=== PATIENT | male | born 1990 | race Caucasian/White ===

== ENCOUNTER 2019-09-30 10:31 | Outpatient (CLI) | payer OTHER, SELFPAY ==
[2019-10-07 00:44] LABS: Result Summary NEGATIVE; Specimen WB Whole Blood
[2019-10-09 12:16] LABS: Specimen WB Whole Blood
== END 2019-09-30 10:51 ==
PROVIDERS: Visit Provider Advanced Practice Midwife
DX: Z13.228 Encounter for screening for other metabolic disorders (principal); Z13.79 Encounter for other screening for genetic and chromosomal anomalies
CPT/HCPCS: 81329; 81220

== ENCOUNTER 2020-04-07 14:07 | Emergency (ER) | payer OTHER, SELFPAY ==
[2020-04-07 14:18] VITALS: BP 126/79; PULSE 91; RESP 18; TEMP 36.7; O2SAT 97
--- NOTE | 2020-04-07 14:25 | W.ED.GENAD ---
Discharge Plan Disposition Patient Disposition: HOME Condition: Stable Discharge Details Clinical Impression: Acute urinary retention, Constipation Primary Care Provider: None,None ED Provider: Yee Barker Home Meds and New Rx's Prescriptions: New tamsulosin [Flomax] 0.4 mg capsule 0.4 mg PO DAILY Qty: 10 RF: 0 Continued ibuprofen 800 mg tablet 800 mg PO Q6H PRNRF: 0 saw palmetto 80 mg Capsule RF: 0 Uro-Zinc RF: 0 Discharge Instructions Instructions: Constipation (ED), Urinary Retention in Men (ED) Additional Instructions: Take the Flomax daily as directed. Take MiraLAX [id number] as directed. Follow-up with urology Dr. Franklin next week for reevaluation. Follow-up with your scheduled appoint with Dr. Franklin on April 29 if indicated. Return immediately to the emergency department if you develop any worsening or new concerning symptoms. Referrals: Jhon Franklin MD [ [facility] STAFF PHYSICIAN] - Discharge Data Discharge Physician: Yee Barker Medical Decision Making 29-year-old male with a history of previous urinary retention in 2011 presents with urinary retention, hesitancy, urgency and dribbling over the past few weeks, worse over the past 6 days. No cauda equina symptoms. Patient able to give a urine sample here and then bladder scanned after urinated and noted to have ~300cc urine post void. Patient appears nontoxic and in no acute distress. Vitals within normal limits. Normal exam. No CVA tenderness. Differential diagnosis includes kidney stone, infection, mass, other source of urinary obstruction. Will place an IV, bolus IV fluids, screening labs, urinalysis and CT abdomen and pelvis. Labs reviewed and unremarkable. No evidence of infection. Normal white blood cell count. Normal renal function. CT abdomen/pelvis notes: Impression: Horseshoe kidney. Distended urinary bladder with mild wall thickening. Mild dilatation of the renal pelves. No evidence of mass or obstructing stone. Large quantity of stool in the rectum. Case discussed with Dr. Franklin who relates that he has seen this before in cases of constipation and stool retention. He recommends a bowel regimen with MiraLAX and also Flomax for his bladder sphincter spasm and relates that this is likely muscular related to his constipation. Patient given 1 dose of Flomax here. Patient placed on urology follow-up list. Medical Records Medical records reviewed: Yes I reviewed the patient's medical records. Imaging Data Radiologic Study: Radiologist's impression: CT ABDOMEN PELVIS W CLINICAL HISTORY: urinary retention, r/o obstruction, mass. TECHNIQUE: Imaging Protocol: Axial computed tomography images with coronal and sagittal reformatted images were created and reviewed CONTRAST MATERIAL: Intravenous: Omnipaque 350 Contrast volume:100 ml Oral: / no COMPARISON: No exams were available for comparison FINDINGS: ABDOMEN: Lung Bases: Normal where visualized. Liver: Normal density. No measurable mass. Gallbladder and biliary tract: No radiodense calculus or dilation. Pancreas: Normal density, no abnormal calcifications or inflammatory process. Spleen: Normal. Kidneys: Horseshoe kidney. No radiodense stones or obstructive uropathy. No masses seen. The renal pelves are mildly prominent which could be secondary to a distended urinary bladder. Adrenal glands: No masses seen. Abdominal Aorta: Abdominal portion non-dilated. PELVIS: Bladder: Distended. Mild diffuse bladder wall thickening. The prostate is not enlarged. No mass or calculi are identified. Bowel: No obstruction or bowel wall thickening. Normal appendix. Increased stool, reticular early in the rectum which appears distended. Peritoneal cavity: No ascites, collection or mesenteric inflammatory response. No free air. Bones: Within normal limits. Reproductive organs: Within normal limits. Lymph nodes: Unremarkable. Impression: Horseshoe kidney. Distended urinary bladder with mild wall thickening. Mild dilatation of the renal pelves. No evidence of mass or obstructing stone.. Large quantity of stool in the rectum. Lab Data Lab results reviewed: Yes I reviewed the patient's lab results. Labs: Laboratory Tests Range/Units 04/07/20 04/07/20 04/07/20 14:33 14:45 14:45 WBC (4.4-10.8) 10^3/uL 5.20 RBC (4.36-5.78) 10^6/uL 5.69 Hgb (13.5-17.5) g/dL 16.9 Hct (40.0-50.0) % 50.1 H MCV (80-95) fL 88.0 MCH (27.0-33.0) pg 29.7 MCHC (32.0-36.0) % 33.7 RDW (11.8-14.1) % 10.8 L Plt Count (130-400) 10^3/uL 256 MPV (8.0-11.0) fL 9.3 Immature Gran % 0.2 Neutrophils % 64.6 Lymphocytes % 26.3 Monocytes % 8.3 Eosinophils % 0.4 Basophils % 0.2 Nucleated RBC % % 0 Absolute Neutrophils (1.2-6.7) 10^3/uL 3.36 Absolute Lymphocytes (1.2-3.4) 10^3/uL 1.37 Absolute Monocytes (0.1-0.8) 10^3/uL 0.43 Absolute Eosinophils (0.0-0.7) 10^3/uL 0.02 Absolute Basophils (0.0-0.2) 10^3/uL 0.01 Sodium (136-145) mmol/L 137 Potassium (3.5-5.1) mmol/L 3.9 Chloride (98-107) mmol/L 101 Carbon Dioxide (21.0-32.0) mmol/L 26.2 Anion Gap (3-11) mmol/L 9.8 BUN (7-18) mg/dL 15 Creatinine (0.70-1.30) mg/dL 1.00 Estimated GFR/1.73 m2 (mL/min/1.73m2) >= 60.00 Glucose (74-106) mg/dL 98 Calcium (8.5-10.1) mg/dL 9.4 Total Bilirubin (0.2-1.0) mg/dL 0.7 AST (15-37) U/L 17 ALT (16-63) U/L 26 Alkaline Phosphatase (46-116) U/L 75 Total Protein (6.4-8.2) g/dL 8.8 H Albumin (3.4-5.0) g/dL 4.7 Urine Color (Yellow) Yellow Urine Clarity (Clear) Clear Urine pH (5-8) 6.5 Ur Specific [place] (1.005-1.025) 1.025 Urine Protein (Negative) mg/dL Negative Urine Ketones (Negative) mg/dL Negative Urine Blood (Negative) Negative Urine Nitrite (Negative) Negative Urine Bilirubin (Negative) Negative Urine Urobilinogen (Up TO 0.2) EU/dL 0.2 Ur Leukocyte Esterase (Negative) Negative Urine RBC (0-2) HPF Negative Urine WBC (0-5) HPF 0-2 Ur Epithelial Cells (Negative) HPF Negative Urine Crystals (Negative) HPF Negative Urine Bacteria (Negative) HPF Negative Urine Casts (Negative) LPF Negative Urine Mucus (Negative) Negative Ur Culture Indicated? No Urine Glucose (Negative) mg/dL Negative HPI General Mode of arrival: ambulatory. Date/Time Provider Initiated Documentation: 04/07/20 14:12. Limitations to Documentation: no limitations. Information obtained by: patient. HPI Narrative: Patient is a 29-year-old male with a previous history of urinary retention in 2011 presents for difficulty with urinating for the past few weeks, worse over the past 6 days. Patient states he has had urinary hesitancy, urgency, dribbling and blood-tinged urine. He states he is sexually active with his and denies any known exposure to STDs. He denies any pain with intercourse. Patient states in 2012 he had diminishing ability to urinate with eventual complete urinary retention for which he was seen in ED and by urology and had a Fair catheter which was removed by urology after 1 week. He states he does not remember if he had a cystoscopy. Patient denies fever, nausea, vomiting, abdominal pain, testicular complaints. He states he has some issues with constipation but generally has a bowel movement every other day which is formed and brown. Related Data Home Medications Medication Instructions Recorded Confirmed Uro-Zinc 04/07/20 ibuprofen 800 mg tablet 800 mg PO Q6H PRN 04/07/20 04/07/20 saw palmetto mg 04/07/20 tamsulosin [Flomax] 0.4 mg PO DAILY #10 cap 04/07/20 Previous Rx's Medication Instructions Recorded tamsulosin [Flomax] 0.4 mg PO DAILY #10 cap 04/07/20 Allergies Allergy/AdvReac Type Severity Reaction Status Date / Time No Known Allergies Allergy Unverified 04/07/20 14:34 General Stated Complaint: Urinary MADONNA: 3 Review of Systems All systems reviewed & are unremarkable except as noted in HPI and below Constitutional Constitutional: Reports as per HPI, Denies chills and Denies fever(s) Eyes Eyes: Denies blurry vision ENT Ears, Nose, Mouth, and Throat: Denies dizziness, Denies sore throat and Denies throat swelling Cardiovascular Cardiovascular: Denies chest pain and Denies dyspnea Respiratory Respiratory: Denies cough and Denies dyspnea Gastrointestinal Gastrointestinal: Denies abdominal pain, Denies diarrhea and Denies vomiting Genitourinary Genitourinary: Denies hematuria, Reports oliguria, Reports difficulty urinating, Denies dysuria, Reports urinary hesitancy and Reports urinary urgency Musculoskeletal Musculoskeletal: Denies back pain and Denies numbness Integumentary/Breasts Skin/Breast: Denies lesions and Denies rash Neurologic Neurologic: Denies dizziness, Denies localized weakness and Denies numbness Allergic/Immunologic Allergic/Immunologic: Denies throat swelling PFSH Medical History (Updated 04/07/20 @ 16:24 by Yee Barker DO) Urinary retention Surgical History (Updated 04/07/20 @ 16:38 by Yee Barker DO) No significant past surgical history Social History Smoking/Tobacco Use Status: Never Smoking risk assessment performed?: Yes Alcohol Intake: current Alcohol Intake frequency: a few times a month Substance use type: does not use Do you feel safe at home: Yes Do you feel safe in your relationship?: Yes Exam Const General: cooperative, healthy appearing and no acute distress HENMT Head: normal to inspection Face and sinus: normal facial exam Eyes General: appearance normal, both eyes and all related structures EOM: EOM intact bilaterally Neck Neck: normal visual inspection and No submandibular swelling Lymphatic: no lymphadenopathy noted Chest Chest: normal inspection of the chest and no tenderness Resp Effort & Inspection: normal respiratory effort and able to speak in complete sentences Auscultation: clear to auscultation bilaterally Cardio Rate: regular rate Rhythm: regular rhythm GI Inspection: normal to inspection Palpation: soft, not firm, not rigid and nontender Auscultation: normal bowel sounds Male General Exam: Yes normal external exam Scrotum: scrotum normal Testes: normal Skin General skin exam: no rashes or lesions noted Neuro General: patient alert, patient awake and patient oriented x3 Cognition: normal cognition Speech: speech normal Motor: muscle tone normal throughout Sensory Exam: no sensory deficits noted Extrem General: normal to inspection, full ROM, capillary refill normal, no calf tenderness bilaterally and no edema Psych Appearance: grossly normal Mental Status: mental status grossly normal Speech and Movement: speech and movement normal Affect: normal affect
[2020-04-07 14:44] LABS: Bilirubin Negative (Negative); Blood Negative (Negative); Clarity Clear (Clear); Glucose Negative (Negative); Ketones Negative (Negative); Leukocyte Esterase Negative (Negative); Specific Gravity 1.025 (1.005-1.025); Urobilinogen 0.2 EU/dL (Up TO 0.2); pH 6.5 (5-8)
--- NOTE | 2020-04-07 14:45 | DI.CT_ITS ---
EXAM: CT ABDOMEN PELVIS W CLINICAL HISTORY: urinary retention, r/o obstruction, mass. TECHNIQUE: Imaging Protocol: Axial computed tomography images with coronal and sagittal reformatted images were created and reviewed CONTRAST MATERIAL: Intravenous: Omnipaque 350 Contrast volume:100 ml Oral: / no COMPARISON: No exams were available for comparison FINDINGS: ABDOMEN: Lung Bases: Normal where visualized. Liver: Normal density. No measurable mass. Gallbladder and biliary tract: No radiodense calculus or dilation. Pancreas: Normal density, no abnormal calcifications or inflammatory process. Spleen: Normal. Kidneys: Horseshoe kidney. No radiodense stones or obstructive uropathy. No masses seen. The renal p elves are mildly prominent which could be secondary to a distended urinary bladder. Adrenal glands: No masses seen. Abdominal Aorta: Abdominal portion non-dilated. PELVIS: Bladder: Distended. Mild diffuse bladder wall thickening. The prostate is not enlarged. No mass or calculi are identified. Bowel: No obstruction or bowel wall thickening. Normal appendix. Increased stool, reticular early in the rectum which appears distended. Peritoneal cavity: No ascites, collection or mesenteric inflammatory response. No free air. Bones: Within normal limits. Reproductive organs: Within normal limits. Lymph nodes: Unremarkable. Impression: Horseshoe kidney. Distended urinary bladder with mild wall thickening. Mild dilatation of the guy l pelves. No evidence of mass or obstructing stone.. Large quantity of stool in the rectum. RADIATION DOSE DELIVERED: 546.43mGy.cm Total DLP DATA REPOSITORY: All CT scans at this facility are submitted to the National Radiology Data Registry (NRDR) Dose Index Registry (DIR) with the [employer] ([employer]). RADIATION OPTIMIZATION: All CT scans at this facility use at least one of these dose optimization te chniques: automated exposure control; mA and/or kV adjustment per patient size (includes targeted exa ms where dose is matched to clinical indication); or iterative reconstruction.
[2020-04-07 14:52] LABS: Abs Immature Grans 0.01 10^3/uL (0.0-0.06); Absolute Basophil Count 0.01 10^3/uL (0.0-0.2); Absolute Eosinophil Count 0.02 10^3/uL (0.0-0.7); Absolute Lymphocyte Count 1.37 10^3/uL (1.2-3.4); Absolute Monocyte Count 0.43 10^3/uL (0.1-0.8); Absolute Neutrophil Count 3.36 10^3/uL (1.2-6.7); Basophils % 0.2; Eosinophils % 0.4; HCT 50.1 % (40.0-50.0); HGB 16.9 g/dL (13.5-17.5); Immature Grans % 0.2; Lymphocytes % 26.3; MCH 29.7 pg (27.0-33.0); MCHC 33.7 % (32.0-36.0); MPV 9.3 fL (8.0-11.0); Monocytes % 8.3; Neutrophils % 64.6; Nucleated RBC 0 %; Platelet Count 256 10^3/uL (130-400); RBC 5.69 10^6/uL (4.36-5.78); RDW 10.8 % (11.8-14.1); RDW-SD 34.7 fL
[2020-04-07 15:05] LABS: ALT 26 U/L (16-63); AST 17 U/L (15-37); Albumin 4.7 g/dL (3.4-5.0); Alkaline Phosphatase 75 U/L (46-116); Anion Gap 9.8 mmol/L (3-11); BUN 15 mg/dL (7-18); Bilirubin, Total 0.7 mg/dL (0.2-1.0); CO2 26.2 mmol/L (21.0-32.0); Calcium 9.4 mg/dL (8.5-10.1); Chloride 101 mmol/L (98-107); Glucose 98 mg/dL (74-106); Potassium 3.9 mmol/L (3.5-5.1); Sodium 137 mmol/L (136-145); Total Protein 8.8 g/dL (6.4-8.2)
[2020-04-07 15:05] LABS: Nitrite Negative (Negative)
[2020-04-07 15:06] LABS: Bacteria Negative HPF (Negative); C & S Indicated? No; Casts Negative LPF (Negative); Crystals Negative HPF (Negative); Epithelial Cells Negative HPF (Negative); Mucus Negative (Negative); RBC Negative HPF (0-2); WBC 0-2 HPF (0-5)
[2020-04-07] MEDS: Normal Saline 1,000 ML 1000 ML IV (15:14)
[2020-04-07] MEDS: Omnipaque 350 MG/ML 100 ML BTL IJ (15:35)
[2020-04-07] MEDS: Normal Saline Flush 10 ML SYR IVP (15:36)
[2020-04-07] MEDS: Normal Saline - Diluent 50 ML VIAL IV (15:36)
[2020-04-07] MEDS: Tamsulosin 0.4 MG CAPCR PO (16:33)
--- NOTE | 2020-04-07 19:08 | NUR.NOTE ---
Referral faxed to Urology, Dr. Franklin.Nursing Note:
== END 2020-04-07 16:40 | disposition home or self-care (01) ==
PROVIDERS: Emergency Provider Physician Assistant
DX: R33.8 Other retention of urine (principal); K59.00 Constipation, unspecified
CPT/HCPCS: 36415; 80053; 96360; 99285; 74177; 81003; 81015; 85025; 99284; J3490

== ENCOUNTER 2020-05-11 09:21 | Day surgery (SDC) | payer OTHER, SELFPAY ==
[2020-05-11 09:30] VITALS: BP 118/70; PULSE 93; RESP 16; TEMP 36.7; O2SAT 100
[2020-05-11] MEDS: Lactated Ringers 1,000 ML 80 ML IV (09:57)
[2020-05-11] MEDS: Sulfameth/Trimeth DS TAB 1 TAB PO (10:00)
--- NOTE | 2020-05-11 11:21 | HPE_ITS ---
Date of service: 05/11/20 Time of Service: Assessment and Plan Assessment and plan (1) Urethral stricture: Status: Acute Assessment and plan: We will perform cystoscopy with urethral dilation and possible internal urethrotomy based on the visual appearance of the stricture. History of Present Illness History of Present Illness Chief Complaint: Urethral stricture Narrative: This is a 29-year-old gentleman with a history of incomplete bladder emptying. This first recurrence was when he was 21 years old. He was seen at an emergency room in [place], [place] with the staff was unable to place a Fair catheter. Cystoscopy was performed by one of the urologist there. Multiple false passages were identified but no urethral stricture was seen at that time. He had a Fair catheter in place which was subsequently removed. He presented recently with a sensation of incomplete bladder emptying. He never went back into retention, but he was unable to empty completely. I did a flexible cystoscopy in the office which demonstrated a small urethral stricture at the membranous urethra. He presents for dilation. Review of Systems Narrative: No fevers or chills No vision change or dysphasia No diabetes or thyroid No shortness of breath, cough or hemoptysis No chest pain or palpitations No nausea, vomiting, hepatitis, ulcers, jaundice, diarrhea or constipation No seizures, strokes or peripheral neuropathy No bleeding disorders or anemia No gout or arthralgia [facility] Medical History (Updated 05/11/20 @ 11:22 by Jhon Franklin MD) Pelvic pain in male Urinary retention Surgical History No significant past surgical history Social History Smoking/Tobacco Use Status: Never Smoking risk assessment performed?: Yes Alcohol Intake: current Alcohol Intake frequency: a few times a month Drug use: Never Substance use type: does not use Do you feel safe at home: Yes Do you feel safe in your relationship?: Yes Meds Home Medications and Allergies Home Medications Medication Instructions Recorded Confirmed Type Uro-Zinc 1 cap PO DAILY 04/07/20 05/11/20 History saw palmetto 80 mg PO DAILY 04/07/20 05/11/20 History cranberry extract 250 mg PO DAILY 05/08/20 05/11/20 History d-mannose 1 pwd PO DAILY 05/08/20 05/11/20 History phenazopyridine [Pyridium] 100 mg PO TID PRN 05/08/20 05/11/20 History Allergies Allergy/AdvReac Type Severity Reaction Status Date / Time No Known Allergies Allergy Unverified 05/08/20 13:21 Exam Const General: cooperative, comfortable and no acute distress Neck Neck: supple Resp Effort & Inspection: normal respiratory effort Auscultation: clear to auscultation bilaterally Cardio Rate: regular rate Rhythm: regular rhythm GI Palpation: soft and no masses Neuro General: patient alert, patient awake and patient oriented x3 Results Last Vital Signs Temp 36.7 C 05/11/20 09:30 Pulse 93 H 05/11/20 09:30 Resp 16 05/11/20 09:30 BP 118/70 05/11/20 09:30 Pulse Ox 100 05/11/20 09:30 COVID-19 Screening Have you, or household traveled for leisure in last 14 days?: No Had IN PERSON contact w/suspected or confirmed C-19 person: No
[2020-05-11] MEDS: Lidocaine 2% Jelly 6 ML SYR (12:07)
--- NOTE | 2020-05-11 12:24 | W.PM.DSUDISC ---
Discharge Plan Disposition Patient Disposition: HOME Condition: Stable Discharge Details Reason For Visit: urethral stricture Attending Provider: Jhon Franklin Primary Care Provider: None,None Home Meds and New Rx's Prescriptions: No Action phenazopyridine [Pyridium] 100 mg Tablet 100 mg PO TID PRNRF: 0 cranberry extract 250 mg Tablet 250 mg PO DAILY RF: 0 d-mannose Powder 1 pwd PO DAILY RF: 0 saw palmetto 80 mg Capsule 80 mg PO DAILY RF: 0 Uro-Zinc 1 cap PO DAILY RF: 0 Discharge Instructions Additional Instructions: Fair to leg bag Followup for catheter removal in 3 to 7 days Followup appt with provider in 3 to 4 weeks Activity:: Activity as Tolerated Shower/Bathe:: 24 hours Diet:: As Tolerated Discharge Orders Discharge Orders: Discharge Order (Routine); Ordered 05/11/20 Ordered By: Jhon Franklin DS: Diagnosis Discharge Diagnosis (1) Urethral stricture: Status: Acute
--- NOTE | 2020-05-11 12:28 | W.PM.OP ---
Date of service: 05/11/20 Time of Service: 12:28 Operative Note Operative Note DATE OF PROCEDURE: 05/11/20 PRE-OP DIAGNOSIS: Urethral stricture POST-OP DIAGNOSIS: same PROCEDURE: cystoscopy with urethral dilation SURGEON: Jhon Franklin ANESTHESIA: other (General without intubation) ESTIMATED BLOOD LOSS: 25 PATHOLOGY: none sent COMPLICATIONS: None Patient was transported to: same day Patient's condition: stable Implants: 18 [place]ian chinik tip Fair catheter with 10 cc of sterile water in balloon Indications: This is a 29-year-old gentleman who has a history of lower urinary tract symptoms including an inability to empty his bladder. He had previous urethral trauma from catheterization attempts. I did a cystoscopy in my office and identified a very narrow stricture. He presents now for dilation. Findings: Narrow short stricture in the membranous urethra Procedure Description: The patient was brought to the operating room on 05/11/2020. After successful induction of general anesthesia without intubation, he was placed in the dorsal lithotomy position. His genitalia is prepped and draped. A 22 [place]ian rigid cystoscope was passed through the urethra down to the level of the stricture. I was then able to pass a Glidewire through the cystoscope and maneuver it through the lumen of the stricture. The scope was removed leaving the wire in place. We then performed serial dilation of the strictured area using fascial dilators. We dilated from an initial size of 14 Estonian up to 20 Estonian. The cystoscope could then be maneuvered through the remainder of the urethra. No additional strictures were identified. No bladder abnormalities were seen. Because of the traumatic dilation, we elected to leave a Fair catheter in place for a few days. We passed an 18 [place]ian chinik tip catheter over the indwelling wire. The catheter balloon was inflated with 10 cc of sterile water and the catheter was hooked to gravity drainage. He tolerated this procedure well with no complications. If he were to develop a recurrent stricture, we would consider referral to a reconstruction urologist for urethroplasty.
[2020-05-11] MEDS: traMADol 50 MG TAB PO (13:00)
[2020-05-11] MEDS: Phenazopyridine 200 MG TAB PO (13:00)
[2020-05-11 13:19] VITALS: BP 113/70; PULSE 67; RESP 16; TEMP 36.3; O2SAT 100
== END 2020-05-11 13:50 | disposition home or self-care (01) ==
PROVIDERS: Visit Provider Urology
PROC: 0TJB8ZZ Inspection of Bladder, Via Natural or Artificial Opening Endoscopic (ICD-10-PCS; CPT 52000; principal; 2020-05-11 10:45)
DX: N35.012 Post-traumatic membranous urethral stricture (principal)
CPT/HCPCS: 53605; NC; J1885; J2250

== ENCOUNTER 2022-02-09 17:19 | Outpatient (REF) | payer OTHER, SELFPAY ==
[2022-02-11 15:01] LABS: Appearance Normal; Container Type 50 mL Conical; Grade 2.5 (>=2.5); Midpiece Defect 24.5 %; Motile/Ejaculate 118.6 x10(6) (>=9.0); Motile/mL 237.2 x10(6) (>=6.0); Motility 61 % (>=40); Semen Volume 0.5 mL (>=1.5); Sperm/mL 388.8 x10(6) (>=15.0); Strict Morph NL 6.5 % (>=4.0); Study Type Semen
== END 2022-02-09 17:20 | disposition home or self-care (01) ==
LOC: LBN 17:19
PROVIDERS: PCP Advanced Practice Midwife; Visit Provider Advanced Practice Midwife
DX: N35.919 Unspecified urethral stricture, male, unspecified site (principal); Z31.41 Encounter for fertility testing
CPT/HCPCS: 89240; 89310

== ENCOUNTER 2022-04-14 02:29 | Outpatient (CLI) | payer OTHER, SELFPAY ==
[2022-04-15 10:24] LABS: Hepatitis B Surface Ag Negative (Negative); Hepatitis C Ab w Rflx HCV PCR Negative (Negative)
[2022-04-15 10:41] LABS: HIV-1/2 Ag & Ab Screen Negative (Negative)
[2022-04-15 11:11] LABS: Hep B Core Antibody Negative (Negative)
[2022-04-15 14:29] LABS: Chlamydia Result Negative (Negative); GC Result Negative (Negative)
[2022-04-16 15:24] LABS: Syphilis IgG w/Reflex Nonreactive (Nonreactive)
[2022-05-17 16:43] LABS: Chromosome Analysis(UVM) (See below)
== END 2022-04-14 02:30 | disposition home or self-care (01) ==
LOC: LBO 02:33
PROVIDERS: PCP Advanced Practice Midwife; Visit Provider Obstetrics & Gynecology
DX: Z31.441 Encounter for testing of male partner of patient with recurrent pregnancy loss (principal)
CPT/HCPCS: 36415; 86704; 86803; 87340; 87389; 87491; 87591; 86780; 88230; 88262